=== PATIENT | male | born 1940 | race Caucasian/White ===

== ENCOUNTER 2021-01-02 14:42 | Emergency (ER) | payer MEDICARE, OTHER ==
[2021-01-02] MEDS ORDERED: Ondansetron PF 4 MG/2 ML Vial ONE (15:16)
[2021-01-02] MEDS ORDERED: Morphine 2 MG/ML VIAL ONE (15:17)
[2021-01-02 15:33] LABS: #Basophils 0.1 10x3/uL (0.0-0.2); #Neutrophils 9.9 10x3/uL (1.5-8.4); %Basophils 0.5 % (0.0-2.0); %Eosinophils 0.2 % (0.0-6.0); %Lymphocytes 10.5 % (18.0-47.0); %Monocytes 7.8 % (0.0-10.0); %Neutrophils 80.6 % (40.0-75.0); Hemoglobin 10.4 g/dL (13.5-17.5); Mean Corpuscular HGB CONC 33.7 g/dL (32.0-36.0); Mean Corpuscular Hemoglobin 32.9 pg (27.0-33.0); Mean Corpuscular Volume 97.8 fl (81.2-95.1); Mean Platelet Volume 9.8 fl (7.4-10.4); Platelet Count 265 10x3/uL (150-450); RBC Distribution Width 12.6 % (11.5-14.5); Red Blood Cell (RBC) Count 3.16 10x6/uL (4.32-5.72); White Blood Cell (WBC) Count 12.2 10x3/uL (3.5-10.5)
[2021-01-02 15:43] LABS: Bilirubin Neg (Negative); Blood, Urine Negative (Negative); Clarity Clear (Clear); Glucose, Urine (Dipstick) Normal (Negative); Ketone, Urine 5 mg/dL (Negative); Leukocyte 25 (Negative); Nitrite Negative (Negative); Protein, Urine (Dipstick) 30 mg/dl (Neg-Trace); Urobilinogen Normal mg/dL (Less than 2)
[2021-01-02 15:54] LABS: ALT (SGPT) 12 U/L (8-55); AST (SGOT) 18 U/L (5-34); Albumin 4.1 g/dL (3.4-4.8); Alkaline Phosphatase 53 U/L (40-110); Anion Gap 16 mmol/L (10-20); BUN (Urea Nitrogen) 26 mg/dL (8.4-25.7); Bilirubin, Total 0.7 mg/dL (0.2-1.2); Calc. Creatinine Clearance 0 mL/min (70-130); Calcium 10.1 mg/dL (7.8-10.44); Carbon Dioxide 23 mmol/L (23-31); Chloride 102 mmol/L (98-107); Glucose 104 mg/dL (83-110); Lipase 89 U/L (8-78); Protein, Total 8.1 g/dL (5.8-8.1); Sodium 137 mmol/L (136-145)
[2021-01-02 16:08] LABS: Bacteria/HPF Rare-Few HPF (None Seen); Mucous/LPF 1+ LPF (<2+); RBC/HPF 0-3 HPF (0-3); Squamous Epithelial 0-3 HPF (0-3); WBC/HPF 0-3 HPF (0-3)
== END 2021-01-02 17:50 | disposition home or self-care (01) ==
LOC: CSHERS 14:42
DX: K57.32 Diverticulitis of large intestine without perforation or abscess without bleeding (principal); F17.210 Nicotine dependence, cigarettes, uncomplicated
CPT/HCPCS: 74177; 80053; 83605; 83690; 85025; 96374; 96375; 99284; J2270; 81003; 81015; J2405

== ENCOUNTER 2021-03-13 11:00 | Outpatient (CLI) | payer MEDICARE, OTHER ==
[2021-03-13 17:35] LABS: SARS-CoV-2 PCR by NAA Not Detected (NotDetected)
== END 2021-03-13 11:01 | disposition home or self-care (01) ==
LOC: CSHLAB 11:00
PROVIDERS: ATTEND Physician Assistant
DX: Z01.812 Encounter for preprocedural laboratory examination (principal); Z20.822 Contact with and (suspected) exposure to COVID-19; R06.02 Shortness of breath; F17.200 Nicotine dependence, unspecified, uncomplicated
CPT/HCPCS: U0003; U0005

== ENCOUNTER 2021-11-07 12:32 | Inpatient (IN) | payer MEDICARE, OTHER ==
[2021-11-07 13:03] LABS: #Basophils 0.1 10x3/uL (0.0-0.2); #Monocytes 0.6 10x3/uL (0.0-1.1); #Neutrophils 5.7 10x3/uL (1.5-8.4); %Basophils 0.6 % (0.0-2.0); %Eosinophils 0.1 % (0.0-6.0); %Lymphocytes 20.6 % (18.0-47.0); %Monocytes 7.4 % (0.0-10.0); %Neutrophils 70.9 % (40.0-75.0); Hemoglobin 6.7 g/dL (13.5-17.5); Mean Corpuscular HGB CONC 32.4 g/dL (32.0-36.0); Mean Corpuscular Hemoglobin 31.8 pg (27.0-33.0); Mean Corpuscular Volume 98.1 fl (81.2-95.1); Platelet Count 294 10x3/uL (150-450); RBC Distribution Width 14.8 % (11.5-14.5); Red Blood Cell (RBC) Count 2.11 10x6/uL (4.32-5.72)
[2021-11-07 13:11] LABS: ALT (SGPT) 19 U/L (8-55); AST (SGOT) 19 U/L (5-34); Albumin 3.7 g/dL (3.4-4.8); Alkaline Phosphatase 38 U/L (40-110); Anion Gap 15 mmol/L (10-20); BUN (Urea Nitrogen) 76 mg/dL (8.4-25.7); Bilirubin, Total 0.4 mg/dL (0.2-1.2); Calc. Creatinine Clearance 0 mL/min (70-130); Calcium 9.7 mg/dL (7.8-10.44); Carbon Dioxide 24 mmol/L (23-31); Chloride 102 mmol/L (98-107); Globulin 3.1 g/dL (2.4-3.5); Glucose 111 mg/dL (83-110); Lipase 84 U/L (8-78); Potassium 5.3 mmol/L (3.5-5.1); Protein, Total 6.8 g/dL (5.8-8.1); Sodium 136 mmol/L (136-145)
[2021-11-07 13:13] LABS: Prothrombin Time 11.1 sec (9.5-12.1)
[2021-11-07] MEDS ORDERED: Cefepime 2 GM VIAL ONE (13:21)
[2021-11-07 13:44] LABS: Bilirubin Neg (Negative); Blood, Urine Negative (Negative); Clarity Clear (Clear); Glucose, Urine (Dipstick) Normal (Negative); Ketone, Urine Negative (Negative); Leukocyte Negative (Negative); Nitrite Negative (Negative); Protein, Urine (Dipstick) 15 mg/dl (Neg-Trace); Specific Gravity, Urine 1.015 (1.002-1.036); Urobilinogen Normal mg/dL (Less than 2)
[2021-11-07 14:05] LABS: PTT 26.2 sec (22.0-33.0)
[2021-11-07] MEDS ORDERED: hydrALAZINE 20 MG/ML VIAL SLOW IVP PRN (14:22)
[2021-11-07] MEDS ORDERED: Labetalol HCl 100 MG/20 ML VIAL SLOW IVP PRN (14:22)
[2021-11-07] MEDS ORDERED: Iopamidol 370 76% 100 ML VIAL ONE (14:24)
[2021-11-07 15:15] LABS: Troponin I 0.012 ng/mL (< 0.028)
[2021-11-07 15:38] LABS: Lactic Acid 1.1 mmol/L (0.5-2.2)
[2021-11-07] MEDS ORDERED: Aspirin Chewable 81 MG TAB ONE (16:09)
[2021-11-07] MEDS ORDERED: cefTRIAXone\\ROCEPHIN 1 GM in Sodium Chloride 0.9% 100 ML IVPB SCH (18:15)
[2021-11-07] MEDS ORDERED: cefTRIAXone\\ROCEPHIN 2 GM in Sodium Chloride 0.9% 100 ML IVPB SCH (18:15)
[2021-11-07] MEDS ORDERED: Artificial Tear Sol 15 ML BOT EA EYE PRN (18:31)
[2021-11-07] MEDS ORDERED: Ondansetron PF 4 MG/2 ML Vial IVP PRN (18:31)
[2021-11-07] MEDS ORDERED: Sodium Chloride 0.65% Nasal 44 ML BOT EA NARE PRN (18:31)
[2021-11-07] MEDS ORDERED: Acetaminophen 650 MG Suppository PR PRN (18:31)
[2021-11-07] MEDS ORDERED: Benzonatate 100 MG CAP PO PRN (18:31)
[2021-11-07] MEDS ORDERED: Ondansetron ODT 4 MG TAB PO PRN (18:31)
[2021-11-07] MEDS ORDERED: Acetaminophen 325 MG TAB PO PRN (18:31)
[2021-11-07] MEDS ORDERED: Moisturizing Cream (Eucerin) 113 GM JAR TOP PRN (18:31)
[2021-11-07 19:04] LABS: Troponin I 0.013 ng/mL (< 0.028)
[2021-11-07 19:06] LABS: Hemoglobin 6.4 g/dL (13.5-17.5); Platelet Count 215 10x3/uL (150-450)
[2021-11-07 19:18] LABS: Iron 114 ug/dL (65-175); Iron Binding Capacity, Total 255 mcg/dL (261-462)
[2021-11-07 19:51] VITALS: BMI 17.9
[2021-11-07] MEDS: Lactated Ringer's 1,000 ML IV SCH (20:54)
[2021-11-07] MEDS: Atorvastatin Calcium 40 MG TAB PO SCH (21:00)
[2021-11-07] MEDS: Pantoprazole 40 MG VIAL IVP SCH (21:00)
[2021-11-07] MEDS: Nicotine 14 MG PATCH TD SCH (21:01)
[2021-11-07 23:30] LABS: Hemoglobin A1c 4.9 % (4.0-6.0)
[2021-11-08 02:41] LABS: SARS-CoV-2 NAA Rapid Test Not Detected (NotDetected)
[2021-11-08 05:16] LABS: ALT (SGPT) 12 U/L (8-55); AST (SGOT) 13 U/L (5-34); Alkaline Phosphatase 30 U/L (40-110); Anion Gap 12 mmol/L (10-20); BUN (Urea Nitrogen) 78 mg/dL (8.4-25.7); Bilirubin, Total 0.6 mg/dL (0.2-1.2); Calc. Creatinine Clearance 43 mL/min (70-130); Calcium 8.2 mg/dL (7.8-10.44); Carbon Dioxide 20 mmol/L (23-31); Cardiac Risk 3.1 (Less than 4.5); Chloride 112 mmol/L (98-107); Cholesterol 93 mg/dl (< 200 Desired); Globulin 2.4 g/dL (2.4-3.5); Glucose 91 mg/dL (83-110); HDL Cholesterol 30 mg/dL (>60 Neg Risk); LDL Cholesterol, Calculated 41 mg/dL; Potassium 4.7 mmol/L (3.5-5.1); Protein, Total 5.4 g/dL (5.8-8.1); Sodium 139 mmol/L (136-145); Triglycerides 111 mg/dL (Less than 150)
[2021-11-08 05:24] LABS: Syphilis Antibody Nonreactive (Nonreactive); Syphilis Antibody Index 0.18 S/CO (<1.00 Non-Reactive)
[2021-11-08 05:59] LABS: #Monocytes 0.7 10x3/uL (0.0-1.1); #Neutrophils 4.8 10x3/uL (1.5-8.4); %Basophils 0.4 % (0.0-2.0); %Eosinophils 0.3 % (0.0-6.0); %Lymphocytes 18.5 % (18.0-47.0); %Monocytes 9.9 % (0.0-10.0); %Neutrophils 70.5 % (40.0-75.0); Hemoglobin 6.6 g/dL (13.5-17.5); Mean Corpuscular HGB CONC 32.7 g/dL (32.0-36.0); Mean Corpuscular Hemoglobin 30.4 pg (27.0-33.0); Mean Platelet Volume 9.1 fl (7.4-10.4); Platelet Count 159 10x3/uL (150-450); RBC Distribution Width 18.3 % (11.5-14.5); Red Blood Cell (RBC) Count 2.17 10x6/uL (4.32-5.72); White Blood Cell (WBC) Count 6.9 10x3/uL (3.5-10.5)
[2021-11-08 06:45] LABS: Mean Corpuscular Volume 93.1 fl (81.2-95.1)
[2021-11-08] MEDS: Pantoprazole 40 MG VIAL IVP SCH ×2 (08:30→21:54)
[2021-11-08] MEDS ORDERED: Aspirin 81 mg Enteric Coated Tablet PO SCH (09:00)
[2021-11-08] MEDS: Nicotine 14 MG PATCH TD SCH (16:25)
[2021-11-08] MEDS: Lactated Ringer's 1,000 ML IV SCH ×2 (17:45→22:34)
[2021-11-08 18:23] LABS: Hemoglobin 9.6 g/dL (13.5-17.5)
[2021-11-08] MEDS: levETIRAcetam 500 MG/5 ML VIAL SLOW IVP SCH ×2 (21:54→22:11)
[2021-11-08] MEDS: Atorvastatin Calcium 40 MG TAB PO SCH (21:54)
[2021-11-09 04:48] LABS: Anion Gap 14 mmol/L (10-20); BUN (Urea Nitrogen) 36 mg/dL (8.4-25.7); Calc. Creatinine Clearance 55 mL/min (70-130); Calcium 8.3 mg/dL (7.8-10.44); Carbon Dioxide 20 mmol/L (23-31); Chloride 110 mmol/L (98-107); Glucose 85 mg/dL (83-110); Potassium 4.2 mmol/L (3.5-5.1); Sodium 140 mmol/L (136-145)
[2021-11-09 04:53] LABS: #Basophils 0.1 10x3/uL (0.0-0.2); #Eosinphils 0.1 10x3/uL (0.0-0.5); #Monocytes 0.5 10x3/uL (0.0-1.1); %Basophils 0.7 % (0.0-2.0); %Eosinophils 1.2 % (0.0-6.0); %Lymphocytes 15.4 % (18.0-47.0); %Neutrophils 74.4 % (40.0-75.0); Hemoglobin 9.3 g/dL (13.5-17.5); Mean Corpuscular HGB CONC 33.7 g/dL (32.0-36.0); Mean Corpuscular Hemoglobin 29.8 pg (27.0-33.0); Mean Corpuscular Volume 88.5 fl (81.2-95.1); Mean Platelet Volume 9.8 fl (7.4-10.4); Platelet Count 150 10x3/uL (150-450); RBC Distribution Width 17.6 % (11.5-14.5); Red Blood Cell (RBC) Count 3.12 10x6/uL (4.32-5.72); White Blood Cell (WBC) Count 6.7 10x3/uL (3.5-10.5)
[2021-11-09] MEDS: Lactated Ringer's 1,000 ML IV SCH (05:40)
[2021-11-09] MEDS: Pantoprazole 40 MG VIAL IVP SCH ×2 (08:14→20:03)
[2021-11-09] MEDS ORDERED: PROPOFOL 20 ML ONE ×2 (09:44→10:12)
[2021-11-09] MEDS ORDERED: EPINEPHrine 1 MG/10 ML Abboject SYRINGE ONE (10:10)
[2021-11-09] MEDS: Nicotine 14 MG PATCH TD SCH (17:50)
[2021-11-09 18:45] LABS: ANA Symphony (Qualitative) POSITIVE (Negative); ANA Symphony (Quantitative) 1.4 Ratio (< 0.7 Negative); CENP IgG Antibody Less than 0.4 EliAU/mL (<7 Negative); Jo-1 IgG Antibody Less than 0.3 EliAU/mL (<7 Negative); RNP70 IgG Antibody Less than 0.3 EliAU/mL (<7 Negative); SSA/Ro IgG Antibody 0.4 EliAU/mL (<7 Negative); SSB/La IgG Antibody Less than 0.3 EliAU/mL (<7 Negative); Scleroderma-70 IgG Antibody 0.7 EliAU/mL (<7 Negative); Smith D IgG Antibody 1.5 EliAU/mL (<7 Negative); dsDNA IgG Antibody 0.8 IU/mL (<10 Negative)
[2021-11-09] MEDS: Atorvastatin Calcium 40 MG TAB PO SCH (20:02)
[2021-11-10] MEDS: Lactated Ringer's 1,000 ML IV SCH ×2 (00:38→13:21)
[2021-11-10 04:25] LABS: #Basophils 0.1 10x3/uL (0.0-0.2); #Eosinphils 0.1 10x3/uL (0.0-0.5); #Monocytes 0.7 10x3/uL (0.0-1.1); #Neutrophils 5.9 10x3/uL (1.5-8.4); %Basophils 0.6 % (0.0-2.0); %Eosinophils 0.9 % (0.0-6.0); %Lymphocytes 12.6 % (18.0-47.0); %Monocytes 9.1 % (0.0-10.0); %Neutrophils 76.5 % (40.0-75.0); Hemoglobin 8.8 g/dL (13.5-17.5); Mean Corpuscular HGB CONC 34.4 g/dL (32.0-36.0); Mean Corpuscular Volume 90.1 fl (81.2-95.1); Mean Platelet Volume 9.9 fl (7.4-10.4); Platelet Count 161 10x3/uL (150-450); RBC Distribution Width 16.5 % (11.5-14.5); Red Blood Cell (RBC) Count 2.84 10x6/uL (4.32-5.72); White Blood Cell (WBC) Count 7.7 10x3/uL (3.5-10.5)
[2021-11-10 04:45] LABS: Anion Gap 12 mmol/L (10-20); BUN (Urea Nitrogen) 21 mg/dL (8.4-25.7); Calc. Creatinine Clearance 55 mL/min (70-130); Calcium 8.5 mg/dL (7.8-10.44); Carbon Dioxide 24 mmol/L (23-31); Chloride 107 mmol/L (98-107); Glucose 82 mg/dL (83-110); Potassium 3.9 mmol/L (3.5-5.1); Sodium 139 mmol/L (136-145)
[2021-11-10] MEDS: Pantoprazole 40 MG VIAL IVP SCH ×2 (09:06→20:39)
[2021-11-10] MEDS: Nicotine 14 MG PATCH TD SCH (19:51)
[2021-11-10] MEDS: Atorvastatin Calcium 40 MG TAB PO SCH (20:39)
[2021-11-11 04:53] LABS: #Basophils 0.1 10x3/uL (0.0-0.2); #Eosinphils 0.1 10x3/uL (0.0-0.5); #Monocytes 0.6 10x3/uL (0.0-1.1); #Neutrophils 3.2 10x3/uL (1.5-8.4); %Eosinophils 2.4 % (0.0-6.0); %Lymphocytes 21.3 % (18.0-47.0); %Monocytes 12.2 % (0.0-10.0); %Neutrophils 62.7 % (40.0-75.0); Hemoglobin 8.8 g/dL (13.5-17.5); Mean Corpuscular HGB CONC 33.5 g/dL (32.0-36.0); Mean Corpuscular Hemoglobin 30.9 pg (27.0-33.0); Mean Corpuscular Volume 92.3 fl (81.2-95.1); Mean Platelet Volume 10.1 fl (7.4-10.4); Platelet Count 179 10x3/uL (150-450); RBC Distribution Width 16.3 % (11.5-14.5); Red Blood Cell (RBC) Count 2.85 10x6/uL (4.32-5.72)
[2021-11-11 05:08] LABS: Anion Gap 14 mmol/L (10-20); BUN (Urea Nitrogen) 20 mg/dL (8.4-25.7); Calc. Creatinine Clearance 44 mL/min (70-130); Calcium 8.6 mg/dL (7.8-10.44); Carbon Dioxide 24 mmol/L (23-31); Chloride 106 mmol/L (98-107); Glucose 85 mg/dL (83-110); Sodium 140 mmol/L (136-145)
[2021-11-11] MEDS: Lactated Ringer's 1,000 ML IV SCH (05:15)
[2021-11-11] MEDS: Pantoprazole 40 MG VIAL IVP SCH (08:37)
[2021-11-11 11:18] VITALS: TEMP 97.9
[2021-11-11 11:28] VITALS: BP 108/53
== END 2021-11-11 11:29 | disposition home or self-care (01) | DRG 64 ==
LOC: CSHERS 12:32 → CSHTELE 18:05
PROVIDERS: ADMIT Family Medicine; ATTEND Internal Medicine
PROC: 30233N1 Transfusion of Nonautologous Red Blood Cells into Peripheral Vein, Percutaneous Approach (ICD-10-PCS; 2021-11-07)
PROC: 0W3P8ZZ Control Bleeding in Gastrointestinal Tract, Via Natural or Artificial Opening Endoscopic (ICD-10-PCS; principal; 2021-11-09)
PROC: 0DB68ZX Excision of Stomach, Via Natural or Artificial Opening Endoscopic, Diagnostic (ICD-10-PCS; 2021-11-09)
DX: I63.89 Other cerebral infarction (principal); K26.4 Chronic or unspecified duodenal ulcer with hemorrhage; D62 Acute posthemorrhagic anemia; E87.2 Acidosis; G81.91 Hemiplegia, unspecified affecting right dominant side; Z20.822 Contact with and (suspected) exposure to COVID-19; F17.210 Nicotine dependence, cigarettes, uncomplicated; I25.10 Atherosclerotic heart disease of native coronary artery without angina pectoris; N18.9 Chronic kidney disease, unspecified; E87.5 Hyperkalemia; R29.704 NIHSS score 4; H91.93 Unspecified hearing loss, bilateral; Z79.899 Other long term (current) drug therapy; Z71.6 Tobacco abuse counseling; Z79.82 Long term (current) use of aspirin; Z85.46 Personal history of malignant neoplasm of prostate; Z92.3 Personal history of irradiation; Z95.5 Presence of coronary angioplasty implant and graft
CPT/HCPCS: 36415; 36416; 36430; 70450; 70551; 71045; 74174; 80048; 80053; 80061; 81003; 82274; 82728; 83036; 83540; 83550; 83605; 83690; 84484; 85025; 85610; 85730; 86038; 86225; 86235; 86780; 86850; 86900; 86901; 87040; 88305; 88312; 93005; 96365; 96366; 97139; C9113; J0171; J0692; J0696; J1953; J2704; J3370; J3490; J7120; P9016; Q9967; U0002

== ENCOUNTER 2021-12-03 09:23 | Inpatient (IN) | payer MEDICARE, OTHER ==
[2021-12-03 09:51] LABS: #Basophils 0.1 10x3/uL (0.0-0.2); #Monocytes 0.5 10x3/uL (0.0-1.1); #Neutrophils 2.7 10x3/uL (1.5-8.4); %Basophils 1.1 % (0.0-2.0); %Eosinophils 0.7 % (0.0-6.0); %Monocytes 10.5 % (0.0-10.0); %Neutrophils 59.5 % (40.0-75.0); Hemoglobin 6.6 g/dL (13.5-17.5); Mean Corpuscular HGB CONC 30.8 g/dL (32.0-36.0); Mean Corpuscular Hemoglobin 30.8 pg (27.0-33.0); Mean Platelet Volume 9.8 fl (7.4-10.4); Platelet Count 283 10x3/uL (150-450); RBC Distribution Width 16.3 % (11.5-14.5); Red Blood Cell (RBC) Count 2.14 10x6/uL (4.32-5.72); White Blood Cell (WBC) Count 4.5 10x3/uL (3.5-10.5)
[2021-12-03 09:59] LABS: PTT 26.1 sec (22.0-33.0); Prothrombin Time 10.7 sec (9.5-12.1)
[2021-12-03 10:13] LABS: ALT (SGPT) 19 U/L (8-55); AST (SGOT) 20 U/L (5-34); Albumin 3.6 g/dL (3.4-4.8); Alkaline Phosphatase 44 U/L (40-110); Anion Gap 14 mmol/L (10-20); BUN (Urea Nitrogen) 29 mg/dL (8.4-25.7); Bilirubin, Total 0.4 mg/dL (0.2-1.2); Calc. Creatinine Clearance 0 mL/min (70-130); Calcium 8.9 mg/dL (7.8-10.44); Carbon Dioxide 25 mmol/L (23-31); Chloride 105 mmol/L (98-107); Estimated GFR 56; Globulin 2.9 g/dL (2.4-3.5); Glucose 110 mg/dL (83-110); Potassium 4.6 mmol/L (3.5-5.1); Protein, Total 6.5 g/dL (5.8-8.1); Sodium 139 mmol/L (136-145)
[2021-12-03] MEDS ORDERED: Pantoprazole 40 MG VIAL ONE (10:17)
[2021-12-03 11:56] LABS: SARS-CoV-2 NAA Rapid Test Not Detected (NotDetected)
[2021-12-03] MEDS ORDERED: hydrALAZINE 20 MG/ML VIAL SLOW IVP PRN (14:14)
[2021-12-03] MEDS ORDERED: Electrolyte Replacement Protocol 1 EACH FS SCH (14:15)
[2021-12-03] MEDS ORDERED: Ondansetron PF 4 MG/2 ML Vial IVP PRN (14:19)
[2021-12-03] MEDS ORDERED: Acetaminophen 325 MG TAB PO PRN (14:19)
[2021-12-03] MEDS ORDERED: Acetaminophen 650 MG Suppository PR PRN (14:19)
[2021-12-03] MEDS ORDERED: Ondansetron ODT 4 MG TAB PO PRN (14:19)
[2021-12-03 15:04] VITALS: BMI 17.4
[2021-12-03 17:59] LABS: Hemoglobin 9.4 g/dL (13.5-17.5)
[2021-12-03] MEDS: Sodium Chloride 0.9% 1,000 ML IV SCH (18:41)
[2021-12-03] MEDS: Pantoprazole 40 MG VIAL IVP SCH (20:23)
[2021-12-03] MEDS: Atorvastatin Calcium 40 MG TAB PO SCH (20:23)
[2021-12-04 00:18] LABS: Hemoglobin 8.6 g/dL (13.5-17.5)
[2021-12-04] MEDS: Sodium Chloride 0.9% 1,000 ML IV SCH ×3 (02:36→21:17)
[2021-12-04 04:49] LABS: Hemoglobin 8.8 g/dL (13.5-17.5); Mean Corpuscular HGB CONC 34.1 g/dL (32.0-36.0); Mean Corpuscular Hemoglobin 31.2 pg (27.0-33.0); Mean Corpuscular Volume 91.5 fl (81.2-95.1); Mean Platelet Volume 9.8 fl (7.4-10.4); Platelet Count 214 10x3/uL (150-450); RBC Distribution Width 17.7 % (11.5-14.5); Red Blood Cell (RBC) Count 2.82 10x6/uL (4.32-5.72); White Blood Cell (WBC) Count 3.9 10x3/uL (3.5-10.5)
[2021-12-04 05:18] LABS: Anion Gap 12 mmol/L (10-20); BUN (Urea Nitrogen) 22 mg/dL (8.4-25.7); Calc. Creatinine Clearance 44 mL/min (70-130); Calcium 8.6 mg/dL (7.8-10.44); Carbon Dioxide 23 mmol/L (23-31); Chloride 108 mmol/L (98-107); Estimated GFR 72; Glucose 76 mg/dL (83-110); Magnesium 2.1 mg/dL (1.6-2.6); Potassium 4.8 mmol/L (3.5-5.1); Sodium 138 mmol/L (136-145)
[2021-12-04 06:02] LABS: MDiff Complete? YES
[2021-12-04 06:13] LABS: Eosinophils 1 % (0-10); Lymphocytes 24 % (21-51); Monocytes 12 % (0-10); Neutrophil 63 % (42-75)
[2021-12-04 06:14] LABS: Microcytosis SLIGHT = 6-15 cells (100X) (0-5/hpf)
[2021-12-04 06:15] LABS: Hypochromia SLIGHT = 6-15 cells (100X) (0-5/hpf)
[2021-12-04 06:16] LABS: Ovalocytes SLIGHT = 2-5 cells (100X) (0-1/hpf); Platelet Morphology Comment Appears Adequate
[2021-12-04] MEDS: Pantoprazole 40 MG VIAL IVP SCH ×2 (08:35→21:16)
[2021-12-04] MEDS ORDERED: Lidocaine 2% MPF 10 ML AMP (For Epidural Use) ONE (13:04)
[2021-12-04] MEDS ORDERED: PROPOFOL 20 ML ONE (13:04)
[2021-12-04] MEDS ORDERED: Fentanyl 100 MCG/2 ML VIAL ONE (13:04)
[2021-12-04] MEDS: Atorvastatin Calcium 40 MG TAB PO SCH (21:16)
[2021-12-04] MEDS ORDERED: diphenhydrAMINE 25 MG CAP PO SCH (22:00)
[2021-12-05 04:58] LABS: #Eosinphils 0.2 10x3/uL (0.0-0.5); #Monocytes 0.5 10x3/uL (0.0-1.1); #Neutrophils 2.6 10x3/uL (1.5-8.4); %Basophils 0.7 % (0.0-2.0); %Eosinophils 3.4 % (0.0-6.0); %Lymphocytes 24.4 % (18.0-47.0); %Neutrophils 59.3 % (40.0-75.0); Hemoglobin 8.5 g/dL (13.5-17.5); Mean Corpuscular HGB CONC 33.1 g/dL (32.0-36.0); Mean Corpuscular Hemoglobin 30.8 pg (27.0-33.0); Mean Corpuscular Volume 93.1 fl (81.2-95.1); Mean Platelet Volume 10.1 fl (7.4-10.4); Platelet Count 209 10x3/uL (150-450); RBC Distribution Width 16.5 % (11.5-14.5); Red Blood Cell (RBC) Count 2.76 10x6/uL (4.32-5.72); White Blood Cell (WBC) Count 4.4 10x3/uL (3.5-10.5)
[2021-12-05 05:11] LABS: Anion Gap 11 mmol/L (10-20); BUN (Urea Nitrogen) 20 mg/dL (8.4-25.7); Calc. Creatinine Clearance 42 mL/min (70-130); Calcium 8.5 mg/dL (7.8-10.44); Carbon Dioxide 24 mmol/L (23-31); Chloride 109 mmol/L (98-107); Estimated GFR 69; Glucose 80 mg/dL (83-110); Potassium 4.4 mmol/L (3.5-5.1); Sodium 140 mmol/L (136-145)
[2021-12-05] MEDS: Sodium Chloride 0.9% 1,000 ML IV SCH ×3 (06:44→20:17)
[2021-12-05] MEDS: Pantoprazole 40 MG VIAL IVP SCH ×2 (09:05→20:17)
[2021-12-05] MEDS ORDERED: GoLYTELY 4,000 ml Bottle PO SCH (15:00)
[2021-12-05] MEDS: Atorvastatin Calcium 40 MG TAB PO SCH (20:17)
[2021-12-06 04:48] LABS: #Basophils 0.1 10x3/uL (0.0-0.2); #Eosinphils 0.1 10x3/uL (0.0-0.5); #Monocytes 0.5 10x3/uL (0.0-1.1); %Basophils 1.3 % (0.0-2.0); %Eosinophils 2.8 % (0.0-6.0); %Lymphocytes 32.2 % (18.0-47.0); %Monocytes 11.9 % (0.0-10.0); %Neutrophils 51.5 % (40.0-75.0); Hemoglobin 8.7 g/dL (13.5-17.5); Mean Corpuscular HGB CONC 33.3 g/dL (32.0-36.0); Mean Corpuscular Volume 92.9 fl (81.2-95.1); Platelet Count 197 10x3/uL (150-450); Red Blood Cell (RBC) Count 2.81 10x6/uL (4.32-5.72); White Blood Cell (WBC) Count 3.9 10x3/uL (3.5-10.5)
[2021-12-06 04:56] LABS: Anion Gap 10 mmol/L (10-20); BUN (Urea Nitrogen) 12 mg/dL (8.4-25.7); Calc. Creatinine Clearance 48 mL/min (70-130); Calcium 8.8 mg/dL (7.8-10.44); Carbon Dioxide 27 mmol/L (23-31); Chloride 107 mmol/L (98-107); Estimated GFR 81; Glucose 76 mg/dL (83-110); Sodium 140 mmol/L (136-145)
[2021-12-06] MEDS: Pantoprazole 40 MG VIAL IVP SCH (08:30)
[2021-12-06] MEDS ORDERED: Lidocaine 1% PF 5 ML VIAL ONE (09:57)
[2021-12-06] MEDS ORDERED: PROPOFOL 40 ML ONE (09:57)
[2021-12-06] MEDS ORDERED: Iron, Sodium Ferric Gluconate 250 MG in Sodium Chloride 0.9% 250 ML 250 ML IVPB SCH (11:45)
[2021-12-06] MEDS: Sodium Chloride 0.9% 1,000 ML IV SCH (12:25)
[2021-12-06 13:42] VITALS: BP 113/54; TEMP 97.6
== END 2021-12-06 15:59 | disposition home or self-care (01) | DRG 812 ==
LOC: CSHERS 09:23 → CSHTELE 12:58
PROVIDERS: ADMIT Family Medicine; ATTEND Internal Medicine
PROC: 30233N1 Transfusion of Nonautologous Red Blood Cells into Peripheral Vein, Percutaneous Approach (ICD-10-PCS; principal; 2021-12-03)
PROC: 0DJ08ZZ Inspection of Upper Intestinal Tract, Via Natural or Artificial Opening Endoscopic (ICD-10-PCS; 2021-12-04)
PROC: 0DJD8ZZ Inspection of Lower Intestinal Tract, Via Natural or Artificial Opening Endoscopic (ICD-10-PCS; 2021-12-06)
DX: D50.9 Iron deficiency anemia, unspecified (principal); E44.0 Moderate protein-calorie malnutrition; Z68.1 Body mass index [BMI] 19.9 or less, adult; F17.210 Nicotine dependence, cigarettes, uncomplicated; Z20.822 Contact with and (suspected) exposure to COVID-19; I25.10 Atherosclerotic heart disease of native coronary artery without angina pectoris; I70.0 Atherosclerosis of aorta; T39.395A Adverse effect of other nonsteroidal anti-inflammatory drugs [NSAID], initial encounter; K57.30 Diverticulosis of large intestine without perforation or abscess without bleeding; K64.8 Other hemorrhoids; I65.29 Occlusion and stenosis of unspecified carotid artery; Z86.73 Personal history of transient ischemic attack (TIA), and cerebral infarction without residual deficits; Z71.6 Tobacco abuse counseling; Z79.82 Long term (current) use of aspirin; Z79.899 Other long term (current) drug therapy
CPT/HCPCS: 36415; 36430; 80048; 80053; 83735; 84484; 85025; 85610; 85730; 86850; 86900; 86901; 93005; 94760; 96374; C9113; J0360; J2704; J2916; J3010; J7050; P9016; U0002

== ENCOUNTER 2021-12-22 14:29 | Observation (INO) | payer MEDICARE, OTHER ==
[2021-12-22 14:55] LABS: #Eosinphils 0.1 10x3/uL (0.0-0.5); #Monocytes 0.4 10x3/uL (0.0-1.1); %Basophils 0.9 % (0.0-2.0); %Eosinophils 1.1 % (0.0-6.0); %Lymphocytes 25.7 % (18.0-47.0); %Monocytes 7.7 % (0.0-10.0); Hemoglobin 6.1 g/dL (13.5-17.5); Mean Corpuscular HGB CONC 32.3 g/dL (32.0-36.0); Mean Corpuscular Volume 95.9 fl (81.2-95.1); Mean Platelet Volume 9.7 fl (7.4-10.4); Platelet Count 296 10x3/uL (150-450); RBC Distribution Width 17.2 % (11.5-14.5); Red Blood Cell (RBC) Count 1.97 10x6/uL (4.32-5.72); White Blood Cell (WBC) Count 4.5 10x3/uL (3.5-10.5)
[2021-12-22 14:56] LABS: #Neutrophils 2.9 10x3/uL (1.5-8.4); %Neutrophils 64.6 % (40.0-75.0)
[2021-12-22 15:05] LABS: ALT (SGPT) 18 U/L (8-55); AST (SGOT) 19 U/L (5-34); Albumin 3.5 g/dL (3.4-4.8); Alkaline Phosphatase 37 U/L (40-110); Anion Gap 13 mmol/L (10-20); BUN (Urea Nitrogen) 28 mg/dL (8.4-25.7); Bilirubin, Total 0.3 mg/dL (0.2-1.2); Calc. Creatinine Clearance 0 mL/min (70-130); Calcium 9.4 mg/dL (7.8-10.44); Carbon Dioxide 24 mmol/L (23-31); Chloride 104 mmol/L (98-107); Estimated GFR 51; Glucose 115 mg/dL (83-110); Lipase 28 U/L (8-78); Potassium 4.5 mmol/L (3.5-5.1); Protein, Total 6.5 g/dL (5.8-8.1); Sodium 136 mmol/L (136-145)
[2021-12-22 15:15] LABS: PTT 25.9 sec (22.0-33.0); Prothrombin Time 10.8 sec (9.5-12.1)
[2021-12-22] MEDS ORDERED: Ondansetron ODT 4 MG TAB PO PRN (16:45)
[2021-12-22] MEDS ORDERED: Acetaminophen 325 MG TAB PO PRN (16:45)
[2021-12-22] MEDS ORDERED: Ondansetron PF 4 MG/2 ML Vial IVP PRN (16:45)
[2021-12-22] MEDS ORDERED: Nicotine 14 MG PATCH TD SCH (17:00)
[2021-12-22 17:27] LABS: #Monocytes 0.3 10x3/uL (0.0-1.1); #Neutrophils 2.3 10x3/uL (1.5-8.4); %Lymphocytes 29.8 % (18.0-47.0); %Monocytes 8.9 % (0.0-10.0); Hemoglobin 7.2 g/dL (13.5-17.5); Mean Corpuscular HGB CONC 32.3 g/dL (32.0-36.0); Mean Corpuscular Hemoglobin 31.6 pg (27.0-33.0); Mean Corpuscular Volume 97.8 fl (81.2-95.1); Mean Platelet Volume 9.1 fl (7.4-10.4); Platelet Count 253 10x3/uL (150-450); RBC Distribution Width 16.7 % (11.5-14.5); Red Blood Cell (RBC) Count 2.28 10x6/uL (4.32-5.72); White Blood Cell (WBC) Count 3.8 10x3/uL (3.5-10.5)
[2021-12-22 20:08] VITALS: BMI 17.6
[2021-12-22 20:13] LABS: Hemoglobin 8.6 g/dL (13.5-17.5)
[2021-12-22 21:05] LABS: SARS-CoV-2 NAA Rapid Test Not Detected (NotDetected)
[2021-12-22] MEDS: Sodium Chloride 0.9% 1,000 ML IV SCH (21:20)
[2021-12-22] MEDS: Pantoprazole 40 MG VIAL IVP SCH (21:22)
[2021-12-23 04:39] LABS: Anion Gap 10 mmol/L (10-20); BUN (Urea Nitrogen) 22 mg/dL (8.4-25.7); Calc. Creatinine Clearance 41 mL/min (70-130); Calcium 9.2 mg/dL (7.8-10.44); Carbon Dioxide 26 mmol/L (23-31); Chloride 105 mmol/L (98-107); Estimated GFR 66; Glucose 80 mg/dL (83-110); Potassium 4.1 mmol/L (3.5-5.1); Sodium 137 mmol/L (136-145)
[2021-12-23] MEDS: Sodium Chloride 0.9% 1,000 ML IV SCH (08:05)
[2021-12-23] MEDS: Pantoprazole 40 MG VIAL IVP SCH (08:05)
[2021-12-23 10:25] LABS: Hemoglobin 8.4 g/dL (13.5-17.5); Platelet Count 249 10x3/uL (150-450)
[2021-12-23 10:58] LABS: Bilirubin, Direct 0.4 mg/dL (0.1-0.3); Bilirubin, Total 0.8 mg/dL (0.2-1.2)
[2021-12-23 12:32] VITALS: TEMP 97.6
[2021-12-23 14:05] VITALS: BP 134/60
== END 2021-12-23 13:45 | disposition home or self-care (01) ==
LOC: CSHERS 14:29 → CSHTELE 18:50
PROVIDERS: ADMIT Family Medicine; ATTEND Family Medicine
DX: D64.9 Anemia, unspecified (principal); K92.2 Gastrointestinal hemorrhage, unspecified; R53.1 Weakness; F17.210 Nicotine dependence, cigarettes, uncomplicated; R09.89 Other specified symptoms and signs involving the circulatory and respiratory systems; Z87.11 Personal history of peptic ulcer disease; Z20.822 Contact with and (suspected) exposure to COVID-19; Z79.899 Other long term (current) drug therapy; Z98.890 Other specified postprocedural states
CPT/HCPCS: 36430; 80048; 80053; 82247; 82728; 83010; 83540; 83550; 83605; 83615; 83690; 85014 ×2; 85018 ×2; 85025 ×2; 85046; 85049; 85610; 85730; 86850; 86900; 86901; 86920; 93005; 94760; 99285; P9016; U0002; 36415; 82274; 85060; 96374; 96376; C9113; G0378; J7050